=== PATIENT | male | born 1935 | race Caucasian/White ===

== ENCOUNTER 2018-07-08 17:18 | Inpatient (IN) | payer MEDICARE ==
[~2018-07-08] VITALS: Ht 180.3 cm; Wt 95.7 kg
--- NOTE | ~2018-07-08 | EC ---
PATIENT:SADIE CASTELLON DATE OF SERVICE: 07/09/18 SEX: M MEDICAL RECORD: [id number] DATE OF : 33 LOCATION:D. D.211 AGE OF PATIENT: 82 ADMISSION DATE: 07/09/18 REFERRING PHYSICIAN: INTERPRETING PHYSICIAN: CHRISTIANO OLIVARES MD ECHOCARDIOGRAM REPORT ECHO CHARGES 4 ECHO COMPLETE Date: 07/09/18 CLINICAL DIAGNOSIS: CHEST PAIN ECHOCARDIOGRAPHIC MEASUREMENTS (adult normal given) AC root (d.<3.7cm) 3.2 cm LV Septum d (<1.2 cm> 1.4 cm Valve Excursion 1.7 cm LV Septum (systole) 1.7 cm Left Atria (s.<4.0cm> 4.5 cm LVPW d(<1.2cm) 1.4 cm RV (d.<2.3cm) 4.4 cm LVPW (sytole) 1.6 cm LV diastole(<5.6CM) 5.2 cm MV E-F(>70mm/sec) cm LV systole 4.3 cm LVOT Diameter 1.7 cm MV exc.(>10mm) cm Est.ejection fraction (50-75%) % DOPPLER: LVIT cm/sec A 83.0 cm/sec E 73.0 cm/sec LA cm/sec RVSP 22 mmHg LVOT 98 cm/sec AOP1/2T m/s Asc. Ao 211 cm/sec RVOT 76 cm/sec RA cm/sec PA 78 cm/sec AV Gradient Peak 17.84mmHg AV Mean 9.85 mmHg AV Area 1.3 cm MV Gradient Peak 3.88 mmHg MV Mean 1.43 mmHg MV Area cm COMMENTS: Screening Technician: 2 STANLEY VORA Certification Engineer: Sudha Olivares TAPE# PACS Pericardial Effusion N DATE OF SERVICE: PROCEDURE: Transthoracic echocardiogram. FINDINGS: 1. Left ventricle shows evidence of left ventricular hypertrophy. Ejection fraction is 55%. Inflow characteristics consistent with diastolic dysfunction. 2. The aortic valve is sclerotic, but otherwise normal. 3. The mitral valve appears to be normal grossly. 4. Tricuspid valve has trace tricuspid regurgitation. RVSP is normal. ECHOCARDIOGRAM REPORT [id number] SADIE CASTELLON 5. The right ventricle has [id number]-mj-rthgumjk enlargement. 6. The right atrium has oiyi-xz-xfsilzjo enlargement. 7. The pulmonic valve is not well visualized. 8. There is no pericardial effusion. CONCLUSIONS: The patient has evidence of hypertensive heart disease, otherwise normal echocardiogram for stated age. TRANSINT:[id number] Voice Confirmation ID: [id number] DOCUMENT ID: [id number] CHRISTIANO OLIVARES MD at 0738 CC: [id number] DICTATION DATE: 07/10/18 0835 PER DIEM NURSE: 07/10/18 1011 DIS IN 07/10/18 [facility] [address] [place] [address]
--- NOTE | ~2018-07-08 | DS ---
PATIENT:SADIE CASTELLON :33 MEDICAL RECORD: [id number] DISCHARGE SUMMARY ADMISSION DATE: 07/09/18 DISCHARGE DATE: 07/10/18 DATE OF ADMISSION: 07/08/2018 DATE OF DISCHARGE: 07/10/2018 ADMISSION DIAGNOSES: Recurrent dyspnea, questionable syncope with known cardiovascular history, previous myocardial infarction, diabetes, hypertension. DISCHARGE DIAGNOSES: Recurrent dyspneic episodes, questionable syncope, likely orthostasis, cardiovascular history, diabetes, hypertension. HOSPITAL COURSE: The patient was admitted to the Emergency Room with the above history. He was asymptomatic upon arrival time in the Emergency Room with his history and age, risk factors, was admitted, unassigned medicine. His primary care physician is Dr. Mcgrath and his paving rammer is at another facility. Cardiology was consulted. He was placed on telemetry, had no significant changes on EKG. Cardiac enzymes cycled 3 times were negative. Blood pressure medications adjusted. Long-acting nitrate discontinued. Echocardiogram, no significant abnormalities. Carotid ultrasound, no significant abnormalities. The patient is anxious to go home. He is alert, oriented, no acute distress. The patient is discharged to home in stable and improved condition. VITAL SIGNS ON DISCHARGE: Temperature 98.1, blood pressure is 132/57, heart rate 62, respirations 20, O2 sats 95% on room air. The patient will follow up with his primary care physician, Dr. Mcgrath. Will also follow up with his paving rammer. MEDICATIONS: Per med rec. Return to the Emergency Room with resumption of symptoms. TRANSINT:[id number] Voice Confirmation ID: [id number] DOCUMENT ID: [id number] PATRIZIA TRAN DO at 0809 CC: [id number] DICTATION DATE: 07/10/18 1326 CRATING AND MOVING ESTIMATOR: 07/10/18 1336 DIS IN 07/10/18 [facility] [id number] [place] [address]
--- NOTE | ~2018-07-08 | HP ---
PATIENT: SADIE CASTELLON MEDICAL RECORD: [id number] ACCOUNT: [id number] LOCATION:[facility].2110 : 33 ADMISSION DATE: 07/09/18 PCP: No PCP HISTORY AND PHYSICAL EXAMINATION HISTORY OF PRESENT ILLNESS: An 82-year-old male presented to the Emergency Room last night with recurrent dyspnea/questionable syncope. He has had similar episodes in the last 2 weeks. At the time of arrival to the ER, he was asymptomatic. He denies chest pain. PAST MEDICAL HISTORY: Significant for recurrent dyspnea, history of coronary artery disease, has had stents times 2. His res counselor is Dr. Mena. His primary care physician is Dr. Mcgrath. He also goes to the [facility]. CURRENT MEDICATIONS: Reported as metformin, Glucotrol ER, isosorbide mononitrate, Crestor, Zantac, and aspirin. SOCIAL HISTORY: Denies tobacco. Denies alcohol. REVIEW OF SYSTEMS: GENERAL: No reported change in weight or appetite. HEENT: Denies cephalgia, visual changes, tinnitus, epistaxis, or dysphagia. CARDIOVASCULAR: Denies chest pain, denies palpitations. Does admit recurrent dyspnea with questionable syncopal episodes. PULMONARY: Denies hemoptysis, denies night sweats. History as above. GASTROINTESTINAL: Denies hematemesis, hematochezia or melena. GENITOURINARY: Denies dysuria. MUSCULOSKELETAL: No acute changes. ENDOCRINE: Denies polyuria, polydipsia, or polyphagia. PHYSICAL EXAMINATION: VITAL SIGNS: Temp 98.8, blood pressure 165/69, heart rate 80, respirations 15, O2 sats 95% on room air. GENERAL: Alert and oriented, no present distress. HEENT: Normocephalic, atraumatic. Eyes: Pupils are equally round and reactive to light and accommodation. Extraocular muscles are intact. Conjunctivae is not injected. Ears: Canals patent, TMs are intact. Nose: Nares patent without drainage. Throat: No erythema, no exudates. NECK: Supple. No lymphadenopathy, no JVD. HEART: Regular rate and rhythm. LUNGS: Clear to auscultation. ABDOMEN: Soft. LABORATORY DATA: EKG shows sinus rhythm, rate of 66, no significant abnormalities. CBC: White count 9.2, hemoglobin 12.5, hematocrit 35.4, platelets 201. Chemistry: Sodium 142, potassium 3.5, chloride 104, bicarb 28, BUN 14, creatinine 1.0. Glucose 134. Troponin less than 0.017. D-dimer 0.52. ASSESSMENT AND PLAN: 1. Recurrent dyspnea/questionable syncope, known cardiovascular history, previous myocardial infarction. Consult cardiology. 2. Diabetes. We will discontinue the Glucotrol, we will hold the metformin. We will place on sliding scale, pending cardiac evaluation. TRANSINT:[id number] Voice Confirmation ID: [id number] DOCUMENT ID: [id number] HISTORY AND PHYSICAL [id number] SADIE CASTELLON ROBERT DO at 0805 CC: [id number] DICTATION DATE: 07/09/18804 BUSINESS TECHNOLOGY PROFESSOR: 07/09/18 0837 ADM IN [facility] [address] [place] [address]
[2018-07-08] MEDS ORDERED: GLUCOTROL ER2.5 MG PO (18:10)
[2018-07-08] MEDS ORDERED: CRESTOR5 MG PO (18:11)
[2018-07-08] MEDS ORDERED: ASPIRIN325 MG PO (18:13)
[2018-07-08] MEDS ORDERED: ZANTAC300 MG PO (18:13)
[2018-07-08 18:39] LABS: BASOPHILS 0.5 % (0-2); EOSINOPHILS 4.8 % (0-7); HEMATOCRIT 38.5 % (42.0-54.0); HEMOGLOBIN 13.6 g/dL (13.5-17.5); IMMATURE GRANULOCYTES 0.4 % (0-5); LYMPHOCYTES 19.2 % (15-50); MCHC 35.3 g/dL (31.0-37.0); MCV 87.7 fL (80.0-100.0); MEAN PLATELET VOLUME 9.9 fL (7.4-10.4); NEUTROPHILS 66.1 % (40-80); PLATELET COUNT 205 10x3/uL (130-400); RBC 4.39 10x6/uL (4.20-6.10); WBC 10.6 10x3/uL (4.8-10.8)
[2018-07-08 18:53] LABS: ALBUMIN 3.6 g/dL (3.4-5.0); ALKALINE PHOSPHATASE 76 U/L (46-116); ALT (SGPT) 17 U/L (10-68); BILIRUBIN - TOTAL 0.34 mg/dL (0.2-1.3); CALC OSMOLALITY 277 mosm/kg (275-300); CALCIUM 8.7 mg/dL (8.5-10.1); CARBON DIOXIDE 22.7 mmol/L (21.0-32.0); CHLORIDE - SERUM 103 mmol/L (98-107); POTASSIUM - SERUM 3.7 mmol/L (3.5-5.1); PROTEIN - SERUM 7.4 g/dL (6.4-8.2); SODIUM 136 mmol/L (136-145); UREA NITROGEN 14 mg/dL (7-18); eGFR NON AFRICAN AMERICAN 76 mL/min (90-120)
[2018-07-08 19:00] VITALS: BP 160/79
[2018-07-08 19:01] LABS: GLUCOSE 187 mg/dL (74-106)
[2018-07-08 19:03] LABS: CKMB 1.4 U/L (0.0-3.6); CREATINE KINASE 55 UL (21-232); TROPONIN-I < 0.017 ng/mL (0.000-0.060)
[2018-07-08] MEDS ORDERED: LISINOPRIL10 MG PO (20:37)
[2018-07-08 21:00] VITALS: BP 166/86
[2018-07-09] VITALS (7 sets, daily range): BP systolic 110–172; BP diastolic 60–80; Ht 180.3 cm; Wt 95.7 kg
[2018-07-09 03:14] LABS: BASOPHILS 0.3 % (0-2); EOSINOPHILS 3.4 % (0-7); HEMATOCRIT 35.4 % (42.0-54.0); HEMOGLOBIN 12.5 g/dL (13.5-17.5); IMMATURE GRANULOCYTES 0.2 % (0-5); LYMPHOCYTES 26.7 % (15-50); MCH 30.9 pg (26.0-34.0); MCHC 35.3 g/dL (31.0-37.0); MCV 87.6 fL (80.0-100.0); MEAN PLATELET VOLUME 9.4 fL (7.4-10.4); MONOCYTES 9.9 % (2-11); NEUTROPHILS 59.5 % (40-80); PLATELET COUNT 201 10x3/uL (130-400); RBC 4.04 10x6/uL (4.20-6.10); WBC 9.2 10x3/uL (4.8-10.8)
[2018-07-09 03:28] LABS: CALCIUM 8.2 mg/dL (8.5-10.1); CHLORIDE - SERUM 104 mmol/L (98-107); POTASSIUM - SERUM 3.5 mmol/L (3.5-5.1); SODIUM 142 mmol/L (136-145); UREA NITROGEN 14 mg/dL (7-18); eGFR NON AFRICAN AMERICAN 76 mL/min (90-120)
[2018-07-09 03:29] LABS: CALC OSMOLALITY 285 mosm/kg (275-300); GLUCOSE 134 mg/dL (74-106); TROPONIN-I < 0.017 ng/mL (0.000-0.060)
[2018-07-09] MEDS ORDERED: GLYBURIDE5 M1 PO (05:15)
[2018-07-09] MEDS ORDERED: NIFEDIPINE ER60 MG PO (05:15)
[2018-07-09] MEDS ORDERED: COREG25 MG PO (05:16)
[2018-07-09] MEDS ORDERED: OXYBUTYNIN15 MG/BOTT PO (05:17)
[2018-07-10] VITALS: BP 152/80
[2018-07-10 04:42] LABS: BASOPHILS 0.4 % (0-2); EOSINOPHILS 4.7 % (0-7); HEMATOCRIT 35.7 % (42.0-54.0); HEMOGLOBIN 12.3 g/dL (13.5-17.5); IMMATURE GRANULOCYTES 0.1 % (0-5); LYMPHOCYTES 28.7 % (15-50); MCH 30.6 pg (26.0-34.0); MCHC 34.5 g/dL (31.0-37.0); MCV 88.8 fL (80.0-100.0); MEAN PLATELET VOLUME 9.8 fL (7.4-10.4); MONOCYTES 13.5 % (2-11); NEUTROPHILS 52.6 % (40-80); PLATELET COUNT 193 10x3/uL (130-400); RBC 4.02 10x6/uL (4.20-6.10); RDW 14.3 % (11.5-14.5); WBC 7.3 10x3/uL (4.8-10.8)
[2018-07-10 05:01] LABS: ANION GAP 11.7 mmol/L (8-16); CALCIUM 8.3 mg/dL (8.5-10.1); CARBON DIOXIDE 26.7 mmol/L (21.0-32.0); CREATININE - SERUM 1.2 mg/dL (0.6-1.3); POTASSIUM - SERUM 3.4 mmol/L (3.5-5.1)
[2018-07-10 05:42] VITALS: BP 132/57
[2018-07-10 07:22] VITALS: BP 153/77
[2018-07-10 11:25] VITALS: BP 160/70
[2018-07-10] MEDS ORDERED: ISOSORBIDE MONO10 MG PO (14:35)
[2018-07-10] MEDS ORDERED: GLUCOPHAGE1000 MG PO (14:36)
== END 2018-07-10 15:52 | disposition home or self-care (01) | DRG 312 ==
LOC: D.ER 17:18 → D.M2 20:37 → OBSVTIME 07-09 15:10 → D.M2 07-09 15:11
PROVIDERS: Family Medicine
DX: R55 Syncope and collapse (principal); I25.10 Atherosclerotic heart disease of native coronary artery without angina pectoris; E11.9 Type 2 diabetes mellitus without complications; R06.00 Dyspnea, unspecified; K21.9 Gastro-esophageal reflux disease without esophagitis; E78.5 Hyperlipidemia, unspecified; I11.0 Hypertensive heart disease with heart failure; I50.9 Heart failure, unspecified; Z95.5 Presence of coronary angioplasty implant and graft; Z86.73 Personal history of transient ischemic attack (TIA), and cerebral infarction without residual deficits